=== PATIENT | female | born 1990 | race American Indian/Alaskan Native ===

== ENCOUNTER 2020-11-18 18:29 | Emergency (ER) | payer OTHER ==
[2020-11-18 18:39] VITALS: BP 127/83
[2020-11-18 18:59] LABS: Hemoglobin 13.8 gm/dl (10.1-14.3); Mean Corpuscular HGB Conc 34 % (30-34); Mean Corpuscular Volume 94 fl (79-97); Platelet Count 296 K/mm3 (140-440); Red Blood Count 4.27 M/mm3 (3.65-5.03); Red Cell Distribution Width 13.1 % (13.2-15.2)
[2020-11-18 19:17] LABS: Alanine Aminotransferase 21 units/L (7-56); Albumin 4.5 g/dL (3.9-5); BUN/Creatinine Ratio 10; Bilirubin,Direct < 0.2 mg/dL (0-0.2); Blood Urea Nitrogen 6 mg/dL (7-17); Calcium 9.3 mg/dL (8.4-10.2); Hemolysis Index 8
[2020-11-18] MEDS ORDERED: SODIUM CHLORIDE 0.9% 1000 ML 1,000 ML IV ONE ×2 (19:35)
[2020-11-18] MEDS ORDERED: ONDANSETRON 4 MG/2 ML INJ ONE (19:35)
[2020-11-18] MEDS ORDERED: ONDANSETRON 4 MG/2 ML INJ IV ONE ×2 (19:35)
[2020-11-18] MEDS ORDERED: SODIUM CHLORIDE 0.9% 1000 ML 1,000 ML ONE (19:35)
--- NOTE | 2020-11-18 19:38 | Emergency Department Report ---
ED General Adult HPI - General Chief complaint: Nausea/Vomiting/Diarrhea Stated complaint: 11 WEEKS /VOMITTING/DIARREAH Time Seen by Provider: 11/18/20 19:29 Source: patient Mode of arrival: Ambulatory Limitations: No Limitations - History of Present Illness Initial comments: Patient is 30 years old female 2 para 1 with no significant past medical history. Patient presented to the ER complaining of nausea, vomiting and watery diarrhea for the last 3 days. Patient denied any abdominal pain, fever or chills. Patient also denied any runny nose cough or congestion or shortness of breath. - Related Data Allergies Allergy/AdvReac Type Severity Reaction Status Date / Time No Known Allergies Allergy Unverified 11/18/20 18:34 ED Review of Systems ROS: Stated complaint: 11 WEEKS /VOMITTING/DIARREAH Other details as noted in HPI Comment: All other systems reviewed and negative Constitutional: denies: chills, fever Respiratory: denies: cough, shortness of breath, SOB with exertion, SOB at rest Cardiovascular: denies: chest pain, palpitations Gastrointestinal: nausea, vomiting, diarrhea. denies: abdominal pain, constipation, hematemesis, melena, hematochezia Genitourinary: denies: urgency, dysuria Musculoskeletal: denies: back pain Neurological: denies: headache, weakness, numbness, paresthesias, confusion ED Past Medical Hx - Past Medical History Previous Medical History?: No - Surgical History Past Surgical History?: No - Social History Smoking Status: Never Smoker ED Physical Exam - General Limitations: No Limitations General appearance: alert, in no apparent distress - Head Head exam: Present: atraumatic, normocephalic, normal inspection - ENT ENT exam: Present: mucous membranes dry - Neck Neck exam: Present: normal inspection, full ROM. Absent: tenderness, menin gismus - Respiratory Respiratory exam: Present: normal lung sounds bilaterally - Cardiovascular Cardiovascular Exam: Present: regular rate, normal rhythm, normal heart sounds - GI/Abdominal GI/Abdominal exam: Present: soft, normal bowel sounds. Absent: distended, tenderness, guarding, rebound, rigid, mass, bruit, pulsatile mass, hernia - Extremities Exam Extremities exam: Present: normal inspection, full ROM, normal capillary refill. Absent: tenderness, pedal edema, calf tenderness - Back Exam Back exam: Present: normal inspection, full ROM. Absent: CVA tenderness (R), CVA tenderness (L) - Neurological Exam Neurological exam: Present: alert, oriented X3, CN II-XII intact, normal gait, reflexes normal. Absent: motor sensory deficit - Psychiatric Psychiatric exam: Present: normal mood - Skin Skin exam: Present: warm, intact, normal color ED Course Vital Signs 11/18/20 11/18/20 18:35 20:16 Temperature 97.9 F Pulse Rate 101 H Respiratory 18 19 Rate Blood Pressure 127/83 O2 Sat by Pulse 99 98 Oximetry ED Medical Decision Making - Lab Data Result diagrams: 11/18/20 18:44 11/18/20 18:44 - Medical Decision Making Patient is 30 years old female 2 para 1 with no significant past medical history. Patient presented to the ER complaining of nausea, vomiting and watery diarrhea for the last 3 days. Patient denied any abdominal pain, fever or chills. Patient also denied any runny nose cough or congestion or shortness of breath. Patient received Zofran and 1 L of normal saline. Patient stated that she is feeling much better no nausea or vomiting. Labs reviewed and is unremarkable except for slightly elevated white blood cells and this is most likely secondary to since patient is not experiencing any fever. Patient abdomen is soft and nontender with no clinical evidence of acute abdomen. Patient also denied any vaginal bleeding or abdominal pain so no ultrasound has been ordered. Patient stated that she is having an appointment with her OB doctor in the next few days. Patient advised to return to the ER if she develop any symptoms or if her symptoms get worse. Critical care attestation.: If time is entered above; I have spent that time in minutes in the direct care of this critically ill patient, excluding procedure time. ED Disposition Clinical Impression: Nausea/vomiting in Disposition: DC-01 TO HOME OR SELFCARE Is pt being admited?: No Condition: Stable Instructions: Nausea and Vomiting, Adult Referrals: PRIMARY CARE, [Referring] - 3-5 Days
[2020-11-18 19:58] LABS: Bilirubin,Urine NEG (Negative); Blood,Urine NEG (Negative); Color,Urine Yellow (Yellow); Mucus,Urine FEW /HPF; Protein,Urine <15 mg/dL mg/dL (Negative); Urobilinogen,Urine < 2.0 mg/dL (<2.0)
== END 2020-11-18 21:41 | disposition home or self-care (01) ==
LOC: ED 18:29
DX: O21.8 Other vomiting complicating pregnancy (principal); O99.611 Diseases of the digestive system complicating pregnancy, first trimester; R19.7 Diarrhea, unspecified; Z3A.11 11 weeks gestation of pregnancy
CPT/HCPCS: 36415; 80048; 80076; 81001; 83690; 84702; 85027; 96361; 96374; 99283; J2405; J7030